=== PATIENT | female | born 1980 | race Caucasian/White ===

== ENCOUNTER → 2017-10-12 11:21 | Outpatient (CLI) | payer MEDICAID, SELFPAY ==
[2017-10-12 15:27] LABS: Estradiol 47.2 pg/mL
[2017-10-12 15:30] LABS: Vitamin D,25 Hydroxy 36.6 ng/mL (29.95-100.01)
[2017-10-13 05:05] LABS: DHEA Sulfate 301.3 ug/dL (57.3-279.2)
[2017-10-15 12:26] LABS: Sex Hormone-binding Globulin 70.6 nmol/L (24.6-122.0)
== END ==
PROVIDERS: Visit Provider Obstetrics & Gynecology
DX: N94.3 Premenstrual tension syndrome (principal)
CPT/HCPCS: 36415; 82306; 82627; 82670; 84270; 84403; 82626

== ENCOUNTER → 2018-01-29 14:17 | Outpatient (CLI) | payer MEDICAID, SELFPAY ==
[2018-02-04 13:29] LABS: HPV APTIMA, High Risk Negative (Negative)
== END ==
PROVIDERS: Visit Provider Obstetrics & Gynecology
DX: Z12.4 Encounter for screening for malignant neoplasm of cervix (principal)
CPT/HCPCS: 87624; 88175; G0145

== ENCOUNTER → 2018-02-08 09:08 | Outpatient (CLI) | payer MEDICAID, SELFPAY ==
--- NOTE | 2018-02-08 09:11 | BI_ITS ---
MAMMOGRAPHY - BILATERAL SCREENING REASON FOR EXAM: Female, 37 years old. Routine annual screening examination. PERTINENT HISTORY: Mother with breast cancer. Grandmother with breast cancer. TECHNIQUE: Digital bilateral breast giovanni (3D mammographic acquisition) in the CC and MLO projections. 2-D mediolateral oblique (MLO) and craniocaudad (CC) views of both breasts were obtained. CAD: Full Field Digital Mammography with Computer Added Detection was performed. COMPARISON: None. Baseline examination. FINDINGS: Breast Composition: There are scattered areas of fibroglandular density. There are no dominant masses or suspicious calcifications. No other significant abnormalities are identified. BI/SCREENING MAMM (CAD), BILAT IMPRESSION: Negative screening mammogram. Yearly followup mammogram recommended. (A) ASSESSMENT CATEGORY: BIRADS Category 1: Negative. A letter regarding these results will be sent to the patient by the facility within 30 days. Approximately 10% of breast cancers are not detected by mammography. A normal mammogram should not delay biopsy of a clinically suspicious abnormality. [id number] Electronically Signed: Ba Diego MD at 9:30 EST Tel [phone], Service support ,
== END ==
PROVIDERS: Family Provider Internal Medicine; PCP Internal Medicine; Visit Provider Obstetrics & Gynecology
DX: Z12.31 Encounter for screening mammogram for malignant neoplasm of breast (principal); Z80.3 Family history of malignant neoplasm of breast
CPT/HCPCS: 77063; 77067

== ENCOUNTER → 2018-04-03 09:03 | Outpatient (CLI) | payer MEDICAID, SELFPAY ==
[2018-04-03 10:10] LABS: Estradiol 39.6 pg/mL; Follicle Stimulating Hormone 6.6 mIU/mL; Glucose 82 mg/dL (74-106)
[2018-04-03 10:20] LABS: Insulin 7.4 mU/L (2.6-37.6)
[2018-04-04 08:13] LABS: DHEA Sulfate 254.8 ug/dL (57.3-279.2)
== END ==
PROVIDERS: Visit Provider Obstetrics & Gynecology
DX: R53.83 Other fatigue (principal); N91.4 Secondary oligomenorrhea; N94.3 Premenstrual tension syndrome
CPT/HCPCS: 36415; 82533; 82627; 82670; 82947; 83001; 83525; 84270; 84403; 82626

== ENCOUNTER → 2019-02-14 15:45 | Outpatient (CLI) | payer MEDICAID, SELFPAY ==
[2019-02-19 12:07] LABS: Age Gdln ACOG Testing 30-65 (.)
[2019-02-19 13:19] LABS: HPV APTIMA, High Risk Negative (Negative)
[2019-02-19 13:23] LABS: HPV Reflexed? YES, CHARGE PATIENT
== END ==
PROVIDERS: Visit Provider Obstetrics & Gynecology
DX: Z12.4 Encounter for screening for malignant neoplasm of cervix (principal)
CPT/HCPCS: 87624; 88175; G0145

== ENCOUNTER → 2019-03-13 17:30 | Outpatient (CLI) | payer MEDICAID, SELFPAY ==
--- NOTE | 2019-03-13 17:30 | BI_ITS ---
MAMMOGRAPHY - BILATERAL SCREENING REASON FOR EXAM: Female, 38 years old. Routine annual screening examination. PERTINENT HISTORY: Mother with breast cancer. Grandmother with breast cancer. Aunt with breast cancer. TECHNIQUE: Digital bilateral breast marco (3D mammographic acquisition) in the CC and MLO projections. 2-D mediolateral oblique (MLO) and craniocaudad (CC) views of both breasts were obtained. CAD: Full Field Digital Mammography with Computer Added Detection was performed. COMPARISON: Comparison is made with prior study dated February 08, 2018. FINDINGS: Breast Composition: There are scattered areas of fibroglandular density. There are no dominant masses or suspicious calcifications. No other significant abnormalities are identified. There has been no significant change since the prior study. BI/SCREEN MAMM (CAD) W/MARCO BILAT IMPRESSION: Stable bilateral screening mammogram. Yearly follow-up mammogram recommended. (A) ASSESSMENT CATEGORY: BIRADS Category 1: Negative. A letter regarding these results will be sent to the patient by the facility within 30 days. Approximately 10% of breast cancers are not detected by mammography. A normal mammogram should not delay biopsy of a clinically suspicious abnormality. [id number] Electronically Signed: Ba Diego, at 9:40 EST , Service support ,
== END ==
PROVIDERS: Family Provider Internal Medicine; PCP Internal Medicine; Referring Provider Obstetrics & Gynecology; Visit Provider Obstetrics & Gynecology
DX: Z12.31 Encounter for screening mammogram for malignant neoplasm of breast (principal); Z80.3 Family history of malignant neoplasm of breast
CPT/HCPCS: 77063; 77067

== ENCOUNTER → 2020-01-12 17:49 | Outpatient (CLI) | payer MEDICAID, SELFPAY | PROVIDERS: PCP Internal Medicine; Referring Provider Clinical Nurse Specialist; Visit Provider Clinical Nurse Specialist | DX: Z20.828 Contact with and (suspected) exposure to other viral communicable diseases (principal) | CPT/HCPCS: 87635; C9803; U0003 ==

== ENCOUNTER → 2020-04-07 16:00 | Outpatient (CLI) | payer MEDICAID, SELFPAY ==
[2020-04-13 09:41] LABS: HPV APTIMA, High Risk Negative (Negative)
== END ==
PROVIDERS: PCP Internal Medicine; Visit Provider Obstetrics & Gynecology
DX: Z12.4 Encounter for screening for malignant neoplasm of cervix (principal)
CPT/HCPCS: 87624; 88175; G0145

== ENCOUNTER → 2020-04-08 17:00 | Outpatient (CLI) | payer MEDICAID, SELFPAY ==
--- NOTE | 2020-04-08 16:55 | BI_ITS ---
MAMMOGRAPHY - BILATERAL SCREENING REASON FOR EXAM: Female, 39 years old. Routine annual screening examination. PERTINENT HISTORY: Mother with breast cancer. Grandmother with breast cancer. Aunt with breast cancer. TECHNIQUE: Digital bilateral breast marco (3D mammographic acquisition) in the CC and MLO projections. 2-D mediolateral oblique (MLO) and craniocaudad (CC) views of both breasts were obtained. CAD: Full Field Digital Mammography with Computer Added Detection was performed. COMPARISON: Comparison is made with prior study dated 03/13/2019 and 02/08/2018. FINDINGS: Breast Composition: There are scattered areas of fibroglandular density. There are no dominant masses or suspicious calcifications. No other significant abnormalities are identified. There has been no significant change since the prior study. BI/SCRN MAMM (CAD)W/MARCO BILAT IMPRESSION: Stable bilateral screening mammogram. Yearly follow-up mammogram recommended. (A) ASSESSMENT CATEGORY: BIRADS Category 1: Negative. A letter regarding these results will be sent to the patient by the facility within 30 days. Approximately 10% of breast cancers are not detected by mammography. A normal mammogram should not delay biopsy of a clinically suspicious abnormality. [id number] Electronically Signed: Ba Diego, at 8:31 EST , Service support ,
== END ==
PROVIDERS: PCP Internal Medicine; Referring Provider Obstetrics & Gynecology; Visit Provider Obstetrics & Gynecology
DX: Z12.31 Encounter for screening mammogram for malignant neoplasm of breast (principal); Z80.3 Family history of malignant neoplasm of breast
CPT/HCPCS: 77063; 77067

== ENCOUNTER → 2020-08-10 11:19 | Outpatient (CLI) | payer MEDICAID, SELFPAY ==
--- NOTE | 2020-08-10 | EMB_PTH ---
PATIENT: YONY GRACE LOC: [facility] U#:[id number] AGE/SX: 44/F ROOM: RE08/10/[address]: Dr. Lena Nassar MD : 1980 BED: DIS: SPEC #: [id number] RECD: 08/10/20 13:32 STATUS: ANA JIM #: [id number] RU: 08/10/20 00:[address]: Lena Black DEPT: SURGICAL PATHOLOGY RECD BY: Carol Ann Gonzalez ENTERED: 08/11/20 09:49 SP TYPE: ENDOM BX/C CARLEEN DR: Dr. Vanesa Jung MD Tissues: Endometrium, NOS Procedures: Surgery Specimen Level IV HEADER OPERATION: Endometrial biopsy PRE-OP DIAGNOSIS: Abnormal uterine bleeding N93.9 TISSUE SUBMITTED: Endometrial biopsy MICROSCOPIC DIAGNOSIS Endometrial biopsy: Dyssynchronous endometrium consisting of weakly proliferative and early secretory endometrium with glandular and stromal breakdown. Fragments of benign endocervical mucosa. NICOLE:oma 08/12/2020 MICROSCOPIC DESCRIPTION Slides are reviewed. GROSS DESCRIPTION Received in fixative is one container labeled with the patient's name and designated EM biopsy. The specimen consists of multiple fragments of hemorrhagic soft tissue that in aggregate measure 2.5 x 2 x 0.2 cm. The specimen is totally submitted in one cassette. / NICOLE:oma 08/11/20 TC:5 CPT: 16142
[2020-08-10 13:37] LABS: Hematocrit 43.1 % (37-47); Mean Corp Hgb Conc 32.5 g/dL (32-36); Mean Corpuscular Hgb 27.3 pg (27.0-32.0); Mean Corpuscular Volume 84.2 fL (81-99); Mean Platelet Vol. 9.7 fl (6.2-12.0); Platelet Count 468 K/mm3 (150-450); RBC Distribution Width CV 12.5 % (11.6-14.6); RBC Distribution Width SD 37.9 fl (35.1-43.9); Red Blood Count 5.12 M/mm3 (4.2-5.4); White Blood Count 7.6 K/mm3 (4.4-11.0)
[2020-08-10 16:46] LABS: Estradiol 79.6 pg/mL; Ferritin 20 ng/mL (8-252); Follicle Stimulating Hormone 4.7 mIU/mL; Iron 55 ug/dL (50-170); Iron Binding Capacity,Total 402 ug/dL (250-450); T4 Free Direct 1.18 ng/dL (0.76-1.46)
== END ==
PROVIDERS: PCP Internal Medicine; Visit Provider Obstetrics & Gynecology
DX: N93.9 Abnormal uterine and vaginal bleeding, unspecified (principal); E28.0 Estrogen excess; R23.2 Flushing; E03.9 Hypothyroidism, unspecified
CPT/HCPCS: 36415; 82670; 82728; 83001; 83540; 83550; 84439; 84443; 85027; 88305

== ENCOUNTER → 2020-08-18 12:22 | Outpatient (CLI) | payer MEDICAID, SELFPAY ==
[2020-08-22 03:06] LABS: Testosterone, % Free 2.83 % (0.50-2.80); Testosterone, Free 0.57 ng/dL (0.10-0.85)
[2020-08-22 13:33] LABS: Sex Hormone-binding Globulin 49.2 nmol/L (24.6-122.0); Testosterone, Total 20 ng/dL (4-50)
== END ==
PROVIDERS: PCP Internal Medicine; Referring Provider Obstetrics & Gynecology; Visit Provider Obstetrics & Gynecology
DX: E28.2 Polycystic ovarian syndrome (principal); E28.0 Estrogen excess
CPT/HCPCS: 36415; 84270; 84402; 84403

== ENCOUNTER 2020-10-28 19:22 | Observation (INO) | payer MEDICAID, SELFPAY ==
[2020-10-22 17:40] LABS: Hematocrit 43.3 % (37-47); Hemoglobin 13.9 g/dL (12.0-15.0); Mean Corp Hgb Conc 32.1 g/dL (32-36); Mean Corpuscular Hgb 27.1 pg (27.0-32.0); Mean Corpuscular Volume 84.4 fL (81-99); Mean Platelet Vol. 10.3 fl (6.2-12.0); Platelet Count 436 K/mm3 (150-450); RBC Distribution Width CV 12.5 % (11.6-14.6); RBC Distribution Width SD 38.5 fl (35.1-43.9); Red Blood Count 5.13 M/mm3 (4.2-5.4); White Blood Count 7.9 K/mm3 (4.4-11.0)
[2020-10-22 17:54] LABS: International Normalized Ratio 1.1; Prothrombin Time (Protime)PT. 13.2 SECONDS (11.7-14.9)
[2020-10-22 17:55] LABS: Partial Thromboplast Time 27.5 Seconds (24.1-36.2)
[2020-10-25 10:55] LABS: Magnesium 2.2 mg/dL (1.6-2.6)
[2020-10-28] VITALS (18 sets, daily range): BP systolic 127–158; BP diastolic 79–108; PULSE 72–100; RESP 16–18; TEMP 36.1–36.5; O2SAT 97–100; BMI 31.2; BMI 32.4
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
[2020-10-28 05:55] LABS: Internal QC Validated? YES +Cl - CLEAR BKGD; Pregnancy, Urine Negative Negative
[2020-10-28] MEDS: Lactated Ringers 1,000 ML 40 ML IV (06:00)
[2020-10-28] MEDS: dexAMETHasone 10 MG/ML Vial 8 MG IV (06:05)
[2020-10-28] MEDS: Gabapentin 600 MG Tablet PO (06:37)
[2020-10-28] MEDS: Acetaminophen 500 MG Tablet 1000 MG PO ×2 (06:38→20:42)
[2020-10-28 07:26] LABS: Bedside Glucose 101 mg/dL (70-110)
--- NOTE | 2020-10-28 07:30 | HYST_PTH ---
PATIENT: YONY GRACE LOC: [facility] U#:[id number] AGE/SX: 40/F ROOM: [facility] RE10/28/[address]: Dr. Lena Nassar MD : 1980 BED: 1 DIS: 10/29/2020 SPEC #: [id number] RECD: 10/28/20 12:03 STATUS: ANA FERNANDEZ #: [id number] RU: 10/28/20 07:[address]: Lena Black DEPT: SURGICAL PATHOLOGY RECD BY: Carol Ann Gonzalez ENTERED: 10/28/20 12:29 SP TYPE: HYSTERECT OTHR DR: Dr. Vanesa Jung MD Tissues: Uterus, NOS Procedures: Surgery Specimen Level V HEADER OPERATION: ERAS, vaginal hysterectomy, cystoscopy PRE-OP DIAGNOSIS: Excessive and frequent menstruation with irregular cycle TISSUE SUBMITTED: Cervix and uterus MICROSCOPIC DIAGNOSIS Cervix and uterus, vaginal hysterectomy: Cervix ? chronic inflammation. Endometrium ? secretory endometrium. Myometrium ? focal adenomyosis. See comment. SJ:rg 11/01/2020 COMMENT Subserosal nodular mass is consistent with adenomyosis. Detached piece of tissue consists of benign ectocervical mucosa. MICROSCOPIC DESCRIPTION Slides are reviewed. GROSS DESCRIPTION Received in fixative is one container labeled with the patient's name and designated cervix, uterus. The specimen consists of a hysterectomy specimen consisting of uterus with cervix and detached piece of soft tissue. The uterus with cervix and detached piece of tissue weighs 108 gm. The uterus measures 10 x 6 x 4 cm. The serosal surface is newell, glistening. A subserosal nodule is noted. The detached piece of tissue measures 3.8 x 1 x 0.2 cm. The ectocervical mucosa is unremarkable. The external os is oval and patulous in contour. The endocervical canal measures 4 cm in length and the endocervical mucosa is unremarkable. The triangular endometrial cavity measures 5 cm in length and up to 3.5 cm in width. The endometrium is newell, glistening without any mass lesion and measures up to 0.2 cm in thickness. Sections of the uterine wall reveal a small subserosal nodular mass measuring 0.3 cm in greatest dimension. The uterine wall measures up to 2.5 cm in thickness. House Steward/Stewardess sections are submitted in seven cassettes as follows: 1 - anterior cervix, 2 - posterior cervix, 3 & 4 - anterior uterine wall, 5 & 6 - posterior uterine wall, 7 - subserosal nodular mass, entirely submitted. / NICOLE:oma 10/28/20 More sections are submitted as follows: 8 ? detached piece of tissue. / NICOLE:oma 10/29/20 TC:5 CPT: 11751
[2020-10-28] MEDS: Lubricating Jelly 60 GM Tube 30 GM TOPICAL (08:04)
[2020-10-28] MEDS: Vasopressin 20 UNITS/ML Vial (08:10)
[2020-10-28] MEDS: Cefazolin 2 GM in 0.9% Normal Saline 100 ML IV ×2 (11:24→20:48)
--- NOTE | 2020-10-28 13:32 | PCM.OPRPT ---
Problems Associated Problem List Diagnoses (1) Hematuria: (2) Intraoperative bladder injury: Report of Operation Date of Procedure: 10/28/20 Pre-Operative Diagnosis: hematuria Post-Operative Diagnosis: hematuria, intraoperative bladder injury Surgery/Procedure Performed:: cystoscopy, insertion bilateral ureteral catheters, attempted vaginal closure of cystotomy Surgeon: Shital Rod Type of Anesthesia: General Drains: open ended ureteral catheters bilaterally Description of Procedure: The patient is a 40-year-old female undergoing a hysterectomy with a vaginal approach. Following closure of the cuff and cystoscopy, there is a question of blood in the urinary bladder. I was asked to come in for evaluation. I remove the Belcher catheter and inserted the cystoscope under direct visualization through the urethra. The urethra was normal. Bilateral ureteral orifices were located in the area of the trigone. Beyond the trigone, in the midline, approximately 2 cm in lateral orientation, a rent of the bladder mucosa was apparent. Bilateral open ended ureteral catheters were gently inserted to approximately 22 cm without difficulty, or evidence of obstruction. At this time the cuff closure was taken down by Dr. Don Nassar. She left the left uterosacral stitch intact. Dissection of the detrusor and identification of the opening of the bladder wall was then attempted. Injury to the detrusor muscle was identified. A 2 layer imbricated closure was performed of this area with 2-0 Vicryl on a UR 6. At this time a cystoscopy was performed once again through the urethra under direct visualization. The tear in the bladder mucosa remained. At this time the decision was made to replace the Belcher catheter, continue the ureteral open ended catheters, now putting out blood-tinged urine. Dr. Don Nassar then made the decision to evaluate the patient laparoscopically. I recommended to Dr. Don Nassar that another urologist be consulted for possibility of laparoscopic or open repair. Admit VTE Documentation VTE Present on Admission: Yes VTE Mechan Device Prophylaxis: SCD's
[2020-10-28] MEDS: Bupivacaine Mpf 0.5% 30 ML VIAL (13:40)
--- NOTE | 2020-10-28 17:18 | PCM.OPRPT ---
Report of Operation Date of Procedure: 10/28/20 Pre-Operative Diagnosis: Bladder injury Post-Operative Diagnosis: The same Surgery/Procedure Performed:: Repair of bladder injury Cystotomy, laparoscopally Description of Surgical Findings:: I was called in to see the patient regarding a in injury to the bladder posterior to the trigone that was identified during the hysterectomy. A cystoscopy had been performed and bilateral stents been placed. The patient had laparoscopic ports in place I did place in extra 8 mm poor in the patient's right side. We identified the large bladder injury there was a Chapman catheter through the hole in the bladder. Then use a laparoscopic approach I ran a suture to close the bladder injury in a running fashion with Vicryl. After one layer closure we filled the bladder up in there was minimal leakage from the injury site. At this point I scrubbed out left the operating room. Then sometime later I was called back in sense there was report that there was the leakage of urine from the bladder and that they could see it tip of the catheter. I came back into the operating room and at this point the primary surgeon and placed a few stitches in the bladder three approximate the edges and then I decided to run a second layer with 3 -0 V loc stitch to close a second layer over the bladder and then this time we filled the bladder up with about 60 mL of water in there was no leakage. I then scrubbed out with the catheter the bladder the patient will have to have the catheter in for two weeks and will see me in the office for follow-up, Off all the patient postoperatively form her surgery as well. So we did a complicated repair of a bladder injury into layer fashion. At the end I was happy with the repair and appeared to be a complete closure with no leakage. Surgeon: francisco Type of Anesthesia: General Drains: 20 fr chapman Admit VTE Documentation VTE Present on Admission: No VTE Mechan Device Prophylaxis: SCD's
[2020-10-28] MEDS: Ondansetron ODT 4 MG Tablet PO (20:20)
[2020-10-28] MEDS: Docusate Sodium 100 MG Capsule PO (20:44)
[2020-10-28] MEDS: Heparin Injection (Vial) 5,000 UNIT/ML VIAL 5000 UNIT SC (21:02)
[2020-10-29 00:02] VITALS: BP 141/97; PULSE 82; RESP 18; TEMP 36.8; O2SAT 100
[2020-10-29] MEDS: Acetaminophen 500 MG Tablet 1000 MG PO ×3 (00:37→12:11)
[2020-10-29] MEDS: Cefazolin 2 GM in 0.9% Normal Saline 100 ML IV ×2 (04:08→12:10)
[2020-10-29 04:10] VITALS: BP 132/78; PULSE 63; RESP 16; TEMP 36.8; O2SAT 100
[2020-10-29 05:00] LABS: Hemoglobin 11.9 g/dL (12.0-15.0); Mean Corp Hgb Conc 32.2 g/dL (32-36); Mean Corpuscular Hgb 27.5 pg (27.0-32.0); Mean Corpuscular Volume 85.5 fL (81-99); Mean Platelet Vol. 10.2 fl (6.2-12.0); Platelet Count 375 K/mm3 (150-450); RBC Distribution Width CV 12.7 % (11.6-14.6); RBC Distribution Width SD 39.3 fl (35.1-43.9); Red Blood Count 4.33 M/mm3 (4.2-5.4); White Blood Count 20.2 K/mm3 (4.4-11.0)
[2020-10-29 05:26] LABS: Anion Gap 8 (5-15); BUN 9 mg/dL (7-18); BUN/Creat Ratio 9.3 RATIO (10-20); Calcium,Total 8.1 mg/dL (8.5-10.1); Chloride 104 mmol/L (98-107); Creatinine, Serum 0.96 mg/dL (0.55-1.02); EST Glomerular Filtration Rate 68 mL/min (>60); Est Glom Filt Rate - Afr Amer 82 mL/min (>60); Estimated Creatinine Clearance 66.59 ml/min; Glucose 159 mg/dL (74-106); Potassium 3.7 mmol/L (3.5-5.1); Sodium Level 139 mmol/L (136-145)
--- NOTE | 2020-10-29 06:36 | PCM.PN.BLA ---
Progress Note Status post complicated repair of bladder injury, in the end she had a good 2 layer closure of the bladder. Today the urine is clear and draining well. I think the ureteral catheters can be removed prior to discharge and she can go home with a Belcher catheter follow-up in my office in 2 weeks for Belcher catheter removal.
[2020-10-29 09:35] VITALS: BP 121/80; PULSE 86; RESP 16; TEMP 36.8; O2SAT 100
[2020-10-29] MEDS: Heparin Injection (Vial) 5,000 UNIT/ML VIAL 5000 UNIT SC (09:46)
[2020-10-29] MEDS: amLODIPine 5 MG Tablet PO (09:46)
[2020-10-29] MEDS: Docusate Sodium 100 MG Capsule PO (09:46)
[2020-10-29] MEDS: 0.9% Saline Lock 10 ML Syringe IV (12:12)
--- NOTE | 2020-10-29 12:32 | OP.PCM_ITS ---
Problems Associated Problem List Diagnoses (1) Menometrorrhagia: (2) Intraoperative bladder injury: (3) Hx of total vaginal hysterectomy: Report of Operation Date of Procedure: 10/28/20 Pre-Operative Diagnosis: 1. Heavy and frequent menstrual bleeding Post-Operative Diagnosis: 1. Heavy and frequent menstrual bleeding 2. Bladder injury Surgery/Procedure Performed:: 1. Total vaginal hysterectomy 2. Cystoscopy 3. Diagnostic laparoscopy 4. Cystoscopy repair Description of Surgical Findings:: normal appearing uterus, cervix and ovaries Surgeon: Lena Black Type of Anesthesia: General Anesthesiologist: Homer Dao Specimen's removed: uterus, cervix Estimated Blood Loss (mL): 200 Fluids Replaced: 4200 ml Description of Procedure: Indications: 40 yo para 3 with history of frequent and irregular menstruation refractory to medical management presents for scheduled TVH. She was counseled regarding procedural risks, benefits, indications and alternatives and desired to proceed. Informed consent was obtained prior to the procedure. Procedure: Patient was brought to the operating room and sign in performed. She was induced under general anesthesia and intubated. She was repositioned into dorsal lithotomy. The perineum was prepped and draped in sterile fashion. The patient was placed into high lithotomy and chapman catheter placed. A weighted speculum was placed vaginally and the cervix grasped with a Tae's tenaculum. The cervix was injected with 20cc of dilute vasopressin (20 U in 100cc NS). A circumferential incision was made using the scalpel and the cervicovaginal junction. The bladder was retracted and vesicouterine membranes was dissected sharply and bluntly anteriorly. The anterior culdesac peritoneum was palpable, however, not visible, thus I proceeded with posterior dissection. The posterior culdesac was entered sharply using the Caceres scissors. A long weighted speculum was placed into the posterior culdesac. The uterosacral ligaments were serially Estevan clamped, cut and transfixed with 0 Vicryl bilaterally. The cardinal ligament and uterine vessels were clamped, electrocoagulated and cut using the Ligasure Impact with significant descensus. The anterior culdesac was then sharply entered and the curved Bhumika placed here. The utero-ovarian ligements were subsequently clamped, electrocoagulated and cut with the Ligasure delivering the uterus and cervix. The pelvic peritoneum was purse-stringed with 0 vicryl. The patient had an enterocele with abundant vaginal tissue posterior. I created a V-incision along the posterior vaginal wall and dissected the underlying fascia and reapproximated the vaginal mucosa and the vaginal cuff with serial figure of eight 0 Vicryl sutures. Cystoscopy was performed with bilateral ureteral efflux noted however cystotomy was present proximal to the trigone. I called for Urologist to evaluate the cystotomy for repair. Dr. Rod performed a cystoscopy with bilateral utereral stent placement and exploratory surgery transvaginally. I took down the vaginal cuff and culdoplasty sutures to allow access to the pelvis. Following Dr. Rod's portion of the case, repeat cystoscopy was performed demonstrating persistence of the cystotomy. The chapman catheter was replaced into the bladder. I placed a sterile ballooned glove in the vagina to maintain pneumoperitoneum for diagnostic laparoscopy to further assess the location of the cystotomy. The patient was placed into low lithotomy and attention turned to the abdomen for diagnostic laparoscopy. An inferior umbilical incision was made and Veress needle introduced with successful hang drop test and no aspirate. The abdomen was insufflated to 15mmHg. The Veress needle was removed and a 5mm Port was introduced abdominal under laparoscopic guidance. Diagnostic laparoscopy was performed demonstrating the cystotomy. I called in Dr. Nowak for assistance with repair. Right and left lower quadrant incisions and 5mm ports were placed under transillumination after injecting 0.5% marcaine. A fourth right lower quadrant 8mm port was placed to introduced the laparoscopic needle into the abdomen. Dr. Nowak reapproximated the cystotomy in single layer 3-0 Vicryl laparoscopically. The bladder was back filled with little drainage observed on laparoscopy. The scope was removed and the chapman catheter replaced. He scrubbed out of the procedure and I again scoped the patient intra-abdominally however I could see the chapman catheter tip at the right pelvis. I called Dr. Nowak again for assistance with repair. I reapproximated this portion of the cystostomy using 3-[address] Nowak arrived and imbricated the cystotomy repair further with V-lock. The chapman catheter was removed, cystoscopy performed with closure of the cystotomy noted. The bladder was back filled with no appreciable leakage on laparoscopy and the chapman catheter returned to the bladder. The abdomen was desufflated and the ports removed. The skin was closed by the [employer] under my supervision with 4-0 Monocryl. I return to the vagina, placed the patient into high lithotomy and reapproximated the vaginal cuff again using 0 Vicryl figure of eight sutures. The urine drained bloody at this time and the ureteral catheters were secured to the chapman catheters. The patient was placed into the dorsal supine position, awakened, extubated and transferred to the recovery room without further complication.
--- NOTE | 2020-10-29 12:44 | PCM.DC ---
Discharge Instructions Diet Discharge Diet: No restrictions Activity Discharge Activity: Return to Normal Activity May resume sexual activity in: 6 weeks Lifting Restrictions: 10 lb Dressing / Incision Call your doctor if your incision/area has: Continuous Slow Oozing, Sudden Increased Bleeding, Increased Pain/ Swelling, Increased Redness, Foul Smelling Discharge and Swelling at the incision site Call your doctor if you observe: Inability to have a bowel movement, Shortness of breath, Chest pain, Calf discomfort, Uncontrolled pain and - (Temperature of 100.4 or more) Cleanse incision/area with: Soap & Water Follow Up Care Please Follow Up With: Lena Black MD When: November 03 at 3:30 pm. Test Results: Test results from this visit will be discussed in further detail at your follow-up appointment, if applicable. Discharge Plan Admission Admit Date/Time: 10/28/20 19:22 Primary Reason for Your Visit: Hysterectomy, Bladder injury repair Attending Provider: Lena Black Primary Care Provider: Vanesa Jung Instructions Patient Instructions: Hysterectomy Vaginal Dc, Emptying and Cleaning Your ... Discharge Orders/Prescriptions Prescriptions: New tramadol 50 mg tablet 50 mg PO Q6H PRN (Reason: pain) Qty: 12 RF: 0 cephalexin 500 mg capsule 500 mg PO BID Qty: 28 RF: 0 Continued methylphenidate HCl [Ritalin] 20 MG tablet 30 mg PO DAILY RF: 0 metformin 500 MG tablet 1,000 mg PO DAILY RF: 0 cholecalciferol (vitamin D3) [Vitamin D3] 2,000 UNIT capsule 2,000 unit PO DAILY RF: 0 Ibuprofen [Motrin] 800 MG tablet 800 mg PO TID PRN PRN (Reason: Pain) Qty: 30 RF: 0 amlodipine 5 mg tablet 5 mg PO DAILY RF: 0 vitamin B complex Capsule 1 cap PO DAILY RF: 0 magnesium 200 mg Tablet 400 mg PO DAILY RF: 0 Referrals / Follow Up: Ayo Nowak MD [STAFF PHYSICIAN] - Within 2 Weeks (Call office to schedule an appointment in 2 weeks.) Disposition Disposition (needs filled in before D/C Order can be placed): Home, Self Care
[2020-10-29 13:46] VITALS: O2SAT 99
[2020-10-29 13:50] VITALS: BP 127/82; PULSE 82; RESP 16; TEMP 36.9; O2SAT 100
== END 2020-10-29 14:31 | disposition home or self-care (01) ==
LOC: SDC 10-29 03:48 → MS3 10-29 03:48
PROVIDERS: Anesthesiology; Admitting Provider Obstetrics & Gynecology; PCP Internal Medicine; Referring Provider Obstetrics & Gynecology; Visit Provider Obstetrics & Gynecology
PROC: (CPT 58260; principal; 2020-10-28 07:10)
DX: N80.0 Endometriosis of uterus (principal); N99.71 Accidental puncture and laceration of a genitourinary system organ or structure during a genitourinary system procedure; N92.1 Excessive and frequent menstruation with irregular cycle; Z87.891 Personal history of nicotine dependence; D25.0 Submucous leiomyoma of uterus; N81.5 Vaginal enterocele
CPT/HCPCS: 00940; 49320; 51865; 52005; 57240; 58260; 36415; 80048; 81025; 82962; 83735; 85027; 85610; 85730; 86850; 86900; 86901; 88307; 96365; 96366; 96372; 99218; 99251; J7050; J7120; A4216; G0378; G0463; J2405

== ENCOUNTER → 2020-11-03 17:03 | Outpatient (CLI) | payer MEDICAID, SELFPAY ==
[2020-10-28 20:09] VITALS: BMI 32.4
[2020-11-03 17:06] LABS: Mucous, Urine 0 SEEN /hpf (<or=2+); Squamous Epithelial Cells - UA 0 SEEN /hpf (5-10)
[2020-11-03 17:24] LABS: Color, Urine Yellow (Yellow); Glucose, Dipstick Normal (Normal); Ketone-Dipstick Negative (Negative); Leukocyte Esterase-Dipstick 100 /ul (Negative); Nitrite-Dipstick Positive (Negative); Occult Blood-Urine 250 /ul (Negative); Protein-Dipstick 100 mg/dl (Negative); Urine Bilirubin Dipstick Negative (Negative); Urine Clarity Clear (Clear); Urine Urobilinogen Normal (Normal)
[2020-11-03 17:40] LABS: Red Blood Cells-Urine 5-10 SEEN /hpf (0-5); White Blood Cells 10-25 SEEN /hpf (0-5)
[2020-11-03 17:41] LABS: Bacteria 2+ /hpf (None Seen)
== END ==
PROVIDERS: PCP Internal Medicine; Visit Provider Obstetrics & Gynecology
DX: R31.9 Hematuria, unspecified (principal)
CPT/HCPCS: 81001; 87077; 87086; 87088; 87186

== ENCOUNTER → 2020-11-11 10:16 | Outpatient (CLI) | payer MEDICAID, SELFPAY ==
[2020-10-28 20:09] VITALS: BMI 32.4
--- NOTE | 2020-11-11 10:19 | RAD_ITS ---
CLINICAL HISTORY: Female, 40 years old. Follow-up of injury to the bladder. PROCEDURE: Cystogram. FLUOROSCOPY TIME (if supplied): (30 seconds) minutes/seconds. 2 images were obtained. 200 mL of contrast installed into the bladder in a retrograde fashion through indwelling catheter.. installed the contrast into the bladder. TECHNIQUE: (All elements of maximal sterile barrier technique followed, including US elements as applicable) The urinary bladder was opacified. No bladder leak is seen. RAD/Cystography min 3 Views IMPRESSION: Unremarkable cystogram. Electronically Signed: Ba Diego MD at 11:04 EDT , Service support ,
== END ==
PROVIDERS: PCP Internal Medicine; Referring Provider Urology; Visit Provider Urology
DX: S37.20XA Unspecified injury of bladder, initial encounter (principal)
CPT/HCPCS: 51600; 74430; Q9965

== ENCOUNTER 2020-11-14 12:28 | Emergency (ER) | payer MEDICAID, SELFPAY ==
[2020-11-14 12:29] VITALS: BP 157/109; PULSE 125; RESP 16; TEMP 35.9; O2SAT 100; BMI 31.1
[2020-11-14 13:23] LABS: Mucous, Urine 0 SEEN /hpf (<or=2+); Squamous Epithelial Cells - UA 0 SEEN /hpf (5-10)
[2020-11-14 13:25] LABS: Color, Urine Straw (Yellow); Glucose, Dipstick Normal (Normal); Ketone-Dipstick Negative (Negative); Leukocyte Esterase-Dipstick 500 /ul (Negative); Nitrite-Dipstick Negative (Negative); Occult Blood-Urine 150 /ul (Negative); Protein-Dipstick Negative (Negative); Specific Gravity, Urine 1.005 (1.002-1.030); Urine Bilirubin Dipstick Negative (Negative); Urine Clarity Clear (Clear); Urine Urobilinogen Normal (Normal)
[2020-11-14 13:39] LABS: Bacteria 1+ /hpf (None Seen); Red Blood Cells-Urine 5-10 SEEN /hpf (0-5); White Blood Cells 50-100 SEEN /hpf (0-5)
--- NOTE | 2020-11-14 14:21 | ED.VIS.FEGU ---
HPI HPI - Female History of Present Illness Chief Complaint: Complaint Detail of Chief Complaint: Dysuria that started this morning Informant: patient Narrative Narrative: Patient presents to the emergency department with complaint of dysuria. Patient states that she had a Belcher catheter in place until couple of days ago. Patient states that she had been on Keflex for a week and then was switched over to Macrobid for suspected UTI. Patient denies any fevers. She denies nausea or vomiting. She described some lower abdominal pressure. Patient states that she had a hysterectomy on October 28 with bladder injury and then required bladder repair. Patient states that she has multiple antibiotic allergies and cannot take Pyridium either. Prior similar symptoms: Yes PFSH [facility] Medical History (Updated 11/14/20 @ 14:[address] Mara Carpenter, ) ADHD Allergy to metal Anxiety Arthritis Bladder infection Dietary restriction Former smoker Gastric reflux Hematuria Hypertension Injury of back Intraoperative bladder injury Migraine headache Restless legs Shortness of breath on exertion Wears glasses Home Medications cholecalciferol (vitamin D3) [Vitamin D3] 2,000 unit PO DAILY 07/27/16 [History Last Taken 10/25/20 08:00] metformin 1,000 mg PO DAILY 07/27/16 [History Last Taken 10/27/20 08:00] methylphenidate HCl [Ritalin] 30 mg PO DAILY 07/27/16 [History Last Taken 10/27/20 08:00] Ibuprofen [Motrin] 800 mg PO TID PRN PRN #30 tab 08/03/16 [Rx Last Taken 10/25/20 08:00] amlodipine 5 mg PO DAILY 10/21/20 [History Last Taken 10/28/20 04:30] magnesium 400 mg PO DAILY 10/21/20 [History Last Taken 10/25/20 08:00] vitamin B complex 1 cap PO DAILY 10/21/20 [History Last Taken 10/25/20 08:00] cephalexin 500 mg PO BID #28 cap 10/29/20 [Rx Last Taken Unknown] tramadol 50 mg PO Q6H PRN #12 tab 10/29/20 [Rx Last Taken Unknown] ciprofloxacin HCl [Cipro] 500 mg PO BID #14 tab 11/14/20 [Rx Last Taken Unknown] Allergy/AdvReac Type Severity Reaction Status Date / Time bupropion [From Wellbutrin] Allergy Other Verified 11/14/20 12:30 erythromycin base Allergy Rash Verified 11/14/20 12:30 fluoxetine [From Prozac] Allergy Upset Verified 11/14/20 12:30 Stomach Penicillins [PCN] Allergy Rash Verified 11/14/20 12:30 Sulfa (Sulfonamide Allergy Rash Verified 11/14/20 12:30 Antibiotics) tolterodine [From Detrol] Allergy Shortness Verified 11/14/20 12:30 of breath acetaminophen [From Percocet] AdvReac Nausea Verified 11/14/20 12:30 citalopram AdvReac Other Verified 11/14/20 12:30 clonidine AdvReac Other Verified 11/14/20 12:30 codeine AdvReac Other Verified 11/14/20 12:30 lisinopril AdvReac Other Verified 11/14/20 12:30 mirtazapine AdvReac Other Verified 11/14/20 12:30 oxycodone [From Percocet] AdvReac Nausea Verified 11/14/20 12:30 paroxetine AdvReac Upset Verified 11/14/20 12:30 Stomach psyllium AdvReac Upset Verified 11/14/20 12:30 Stomach sertraline AdvReac Other Verified 11/14/20 12:30 venlafaxine [From Effexor] AdvReac Upset Verified 11/14/20 12:30 Stomach Surgical History (Updated 10/29/20 @ 12:[address] Lena Nassar MD) History of appendectomy History of salpingectomy History of selective injection of anesthetic agent around lumbar nerve root History of tubal ligation Social History Smoking Status: Former smoker ROS ROS ED Constitutional Constitutional ED: Reports systems reviewed and no addt'l complaints, except as documented; Denies body ache(s), change in weight or chills Eyes Eyes: Denies acute decrease in peripheral vision, change in vision, double vision or loss of vision ENT ENT ED: Reports none; Denies ear pain, lip swelling, loss taste/smell, neck pain, otalgia or sore throat Cardiovascular Cardiovascular: Reports none; Denies abdominal pain, chest pain with activity, leg edema, lightheadedness, palpitations, rapid heart rate or syncope Respiratory/Chest Respiratory/Chest: Reports none; Denies change in mental status, dry cough, dyspnea, hemoptysis, shortness of breath at rest or shortness of breath with exertion Gastrointestinal Gastrointestinal: Reports none; Denies abdominal pain, change in stool character, diarrhea, hematemesis, hematochezia, melena, rectal bleeding or vomiting Genitourinary Genitourinary ED: Reports none, dysuria and urinary frequency; Denies abdominal discomfort, anuria, genital pain or polyuria Musculoskeletal Musculoskeletal: Reports none; Denies arthralgias, back pain, difficulty walking, extremity pain, muscle weakness or myalgias Integumentary Reports none; Denies abscess or rash Neurologic Neurologic: Reports none; Denies abnormal gait, confusion, focal weakness, frequent falls, headache(s), loss of vision, numbness, paresthesias, radicular pain, vertigo or weakness Psychiatric Psychiatric: Reports systems reviewed and no addt'l complaints, except as documented and none; Denies behavioral changes, confusion, difficulty concentrating, hallucinations, suicidal ideation, tactile hallucinations or visual hallucinations Endocrine Endocrinology: Denies none, cold intolerance, excessive sweating, fatigue or heat intolerance Hematologic/Lymphatic Hematologic/Lymphatic: Reports none; Denies anemia, easy bleeding or easy bruising Allergic/Immunologic Allergic/Immunologic ED: Denies as per HPI, none, lip swelling, mouth swelling, throat swelling, tongue swelling or hives EXAM Physical Exam Const Vital Signs: 11/14/20 12:29 Temperature 96.6 F L Temperature Source Temporal Pulse Rate 125 H Respiratory Rate 16 Blood Pressure 157/109 H Blood Pressure Mean 125 Pulse Ox 100 Oxygen Delivery Method Room Air Positive well nourished and well developed General Appearance ED: well developed and NAD HEENT Reports TM's clear and moist mucous membranes normocephalic and atraumatic; Negative for trauma or tenderness Tympanic Membrane ED: Yes TM's clear Eyes PERRL and EOMs intact bilaterally General Eye ED: Negative for pale conjunctiva or scleral icterus Neck no lymphadenopathy, supple and no JVD General: Negative for tenderness Chest Wall inspection of chest normal and palpation of chest normal Chest: Negative for tenderness Resp normal respiratory effort and clear to auscultation bilaterally Effort and Inspection: Negative for respiratory distress or pain with movement Auscultation: Negative for rhonchi, wheezes or diminished lung sounds Cardio regular rate, regular rhythm, S1 normal heart sound, S2 normal heart sound and no murmurs Peripheral Pulses: pulses 2+ throughout GI normal to inspection, nondistended, normoactive bowel sounds, soft to palpation, non-distended and no masses GI Narrative: Minimal suprapubic tenderness on palpation. No rebound, rigidity, or peritoneal signs. Port incisions healing well without evidence of infection. Back/Spine no CVA tenderness and no thoracic nor lumbar tenderness Extremity normal to inspection General Extremety ED: Negative for edema General Extremity: Negative for edema Neuro oriented x3, CN's II-XII intact bilaterally, no sensory deficits noted and gait normal Sensorium / Orientation: awake, alert, oriented to person, oriented to place and oriented to time Motor Exam: strength 5/5 throughout and strength abnormal Psych mental status grossly normal Skin no rashes or lesions noted and no wounds MDM MDM MDM Narrative Medical decision making narrative: Patient's urinalysis consistent with UTI. I sent off a culture. We will start her on Cipro being that she was recently on Keflex and Macrobid and has multiple other drug allergies. Lab Data Attestation: I reviewed the patient's lab results. Labs: Laboratory Results - last 24 hr 11/14/20 13:15 Urine Color Straw Urine Clarity Clear Urine pH 7.0 Ur Specific [place] 1.005 Urine Protein Negative Urine Glucose (UA) Normal Urine Ketones Negative Urine Occult Blood 150 H Urine Nitrite Negative Urine Bilirubin Negative Urine Urobilinogen Normal Ur Leukocyte Esterase 500 H Urine RBC 5-10 SEEN Urine WBC 50-100 SEEN Ur Squamous Epith Cells 0 SEEN Urine Bacteria 1+ Urine Mucus 0 SEEN Discharge Plan Triage Chief Complaint: Complaint ED Provider: Mara Carpenter Dx/Rx/DC Orders Clinical Impression: UTI (urinary tract infection) Instructions: ED CYSTITIS Female Adult Prescriptions: New ciprofloxacin HCl [Cipro] 500 mg tablet 500 mg PO BID Qty: 14 RF: 0 No Action methylphenidate HCl [Ritalin] 20 MG tablet 30 mg PO DAILY RF: 0 metformin 500 MG tablet 1,000 mg PO DAILY RF: 0 cholecalciferol (vitamin D3) [Vitamin D3] 2,000 UNIT capsule 2,000 unit PO DAILY RF: 0 Ibuprofen [Motrin] 800 MG tablet 800 mg PO TID PRN PRN (Reason: Pain) Qty: 30 RF: 0 amlodipine 5 mg tablet 5 mg PO DAILY RF: 0 vitamin B complex Capsule 1 cap PO DAILY RF: 0 magnesium 200 mg Tablet 400 mg PO DAILY RF: 0 tramadol 50 mg tablet 50 mg PO Q6H PRN (Reason: pain) Qty: 12 RF: 0 cephalexin 500 mg capsule 500 mg PO BID Qty: 28 RF: 0 Primary Care Provider: Vanesa Jung Referrals: Vanesa Jung MD [Primary Care Provider] - 3-5 Days Disposition Disposition: Home, Self Care
[2020-11-14 14:39] VITALS: BP 143/106; PULSE 99; RESP 18; O2SAT 99
[2020-11-14 14:41] VITALS: BP 140/92
[2020-11-14] MEDS: Ciprofloxacin 500 MG Tablet PO (14:41)
== END 2020-11-14 14:42 | disposition home or self-care (01) ==
LOC: ED 14:31
PROVIDERS: Emergency Provider Emergency Medicine; PCP Internal Medicine
DX: N39.0 Urinary tract infection, site not specified (principal); I10 Essential (primary) hypertension; Z87.891 Personal history of nicotine dependence; F41.9 Anxiety disorder, unspecified; F90.9 Attention-deficit hyperactivity disorder, unspecified type; K21.9 Gastro-esophageal reflux disease without esophagitis; Z79.1 Long term (current) use of non-steroidal anti-inflammatories (NSAID); Z79.84 Long term (current) use of oral hypoglycemic drugs; Z79.899 Other long term (current) drug therapy
CPT/HCPCS: 81001; 87086; 87088; 99283

== ENCOUNTER → 2020-12-10 13:02 | Outpatient (CLI) | payer MEDICAID, SELFPAY ==
--- NOTE | 2020-12-10 13:07 | US_ITS ---
STUDY: RENAL ULTRASOUND - COMPLETE REASON FOR EXAM: Female, 40 years old. S/P BLADDER REPAIR TECHNIQUE: Ultrasound evaluation of the kidneys was performed with real-time and static serrano-scale imaging. COMPARISON: None. FINDINGS: RIGHT KIDNEY: Normal location of the right kidney, which is normal in size. The right kidney measures 10.7 x 5.2 x 4.3 cm. There is a normal cortex of the right kidney. The renal cortex measures 1.3 cm. There is no right renal mass or cyst. There are no right renal calculi. There is no right hydronephrosis. DISTAL RIGHT URETER: There is non-visualization of the distal right ureter. There is no demonstrated right ureterovesical junction calculus. There is a visualized right ureteral jet. LEFT KIDNEY: Normal location of the left kidney, which is normal in size. The left kidney measures 10.9 x 5.3 x 5.3 cm. There is a normal cortex of the left kidney. The renal cortex measures 11.4 cm. There is no left renal mass or cyst. There are no left renal calculi. There is no left hydronephrosis. DISTAL LEFT URETER: There is non-visualization of the distal left ureter. There is no demonstrated left ureterovesical junction calculus. There is a visualized left ureteral jet. AORTA: There is obscuration of the abdominal aorta by overlying bowel gas I.V.C.: The IVC is obscured. BLADDER: The distended urinary bladder has a volume of 91 ml. There is a normal wall thickness of the distended urinary bladder. There is no demonstrated mass within the urinary bladder. There are no demonstrated bladder calculi. US/Kidney and Bladder IMPRESSION: Normal ultrasound of the kidneys and urinary bladder. Electronically Signed: Jayy Escalante MD at 15:02 EDT , Service support ,
== END ==
PROVIDERS: PCP Internal Medicine; Referring Provider Urology; Visit Provider Urology
DX: Z48.816 Encounter for surgical aftercare following surgery on the genitourinary system (principal)
CPT/HCPCS: 76770

== ENCOUNTER 2022-02-06 12:34 | Emergency (ER) | payer OTHER, MEDICAID, SELFPAY ==
[2022-02-06 12:34] VITALS: BP 161/93; PULSE 89; RESP 14; TEMP 36.6; O2SAT 100; BMI 32.4
--- NOTE | 2022-02-06 13:01 | EKG12_ITS ---
Test Reason : Blood Pressure : / mmHG Vent. Rate : 082 BPM Atrial Rate : 082 BPM P-R Int : 144 ms QRS Dur : 076 ms QT Int : 370 ms P-R-T Axes : 027 -03 018 degrees QTc Int : 432 ms Normal sinus rhythm Normal ECG Confirmed by JESSIKA AGUIRRE, KIRSTY ([id number]), material expeditor VISHAL MCCONNELL ([id number]) on 02/07/2022 11:39:35 AM Referred By: ESTRELLA Confirmed By:KIRSTY ROSEN MD
--- NOTE | 2022-02-06 13:14 | RAD_ITS ---
STUDY: X-RAY CHEST REASON FOR EXAM: Female, 41 years old. Chest pain TECHNIQUE: Single AP portable view of the chest. COMPARISON: None. FINDINGS: Elevation of the right hemidiaphragm. The lungs are clear. There is no demonstrated pleural abnormality. Normal size heart. Normal mediastinum and naveed. Normal visualized pulmonary arteries. Normal visualized aortic arch and descending thoracic aorta. There are degenerative changes of the visualized thoracic spine. Normal visualized ribs, clavicles, and shoulders. There is no demonstrated abnormality of the visualized soft tissue structures of the upper abdomen. RAD/Chest 1 View (Portable) IMPRESSION: Normal x-ray examination of the chest. Electronically Signed: Ba Diego MD at 13:26 EST ,
[2022-02-06 13:43] LABS: Absolute Lymphocyte Count 2.33 X10^3/uL (0.83-4.51); Absolute Neutrophil Count 6.3 X10^3/uL (2.0-7.7); Basophil# 0.06 X10^3/uL; Basophil% 0.6 % (0-1); Eosinophil# 0.12 X10^3/uL; Eosinophils% 1.3 % (0-5); Hematocrit 43.9 % (37-47); Hemoglobin 14.6 g/dL (12.0-15.0); Lymphocyte # 2.33 X10^3/ul (0.83-4.51); Lymphocyte % 24.8 % (19-41); Mean Corp Hgb Conc 33.3 g/dL (32-36); Mean Corpuscular Volume 84.3 fL (81-99); Mean Platelet Vol. 9.8 fl (6.2-12.0); Monocyte# 0.51 X10^3/uL; Monocyte% 5.4 % (0-10); NRBC Flagged by Analyzer 0 % (0-5); Neutrophil # 6.33 X10^3/uL (2.7-7.7); Neutrophil % 67.5 % (47-70); Platelet Count 439 K/mm3 (150-450); RBC Distribution Width CV 12.3 % (11.6-14.6); RBC Distribution Width SD 37.3 fl (35.1-43.9); Red Blood Count 5.21 M/mm3 (4.2-5.4); White Blood Count 9.4 K/mm3 (4.4-11.0)
--- NOTE | 2022-02-06 13:51 | ED.VIS.CHEST ---
HPI History of Present Illness Chief Complaint: Chest Pain Informant: patient Onset/Context/Timing Onset: Hours (2) Activity at onset: gradual, onset and rest Timing: Continuous Quality: Positive for Pressure and Sharp Location: Left Parasternal Current Severity: Moderate Maximum Severity: Moderate Worsened By: Nothing; Not Worsened By Breathing or Coughing Relieved By: Nothing Associated Symptoms: Positive for Lightheadedness (Transiently, no near-syncope/syncope) and Palpitations (Wheeler like racing); Negative for Nausea, Vomiting, Diaphoresis, Dyspnea, Cough or Fever Narrative Narrative: Nonpleuritic left-sided chest discomfort along with a feeling of a racing heartbeat, palpitations are gone but the discomfort persists, started 2 hours ago. Had another episode about a week ago that she did not come to the ED for because it was more transient. No recent unilateral leg pain/swelling, no history of DVT or PE, no recent long travel, hospitalization, or surgery. The discomfort is nonpleuritic. 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 [facility] Medical History ADHD Allergy to metal Anxiety Arthritis Bladder infection Dietary restriction Former smoker Gastric reflux Hematuria Hypertension Injury of back Intraoperative bladder injury Migraine headache Restless legs Shortness of breath on exertion Wears glasses Home Medications cholecalciferol (vitamin D3) 50 mcg (2,000 unit) capsule (Vitamin D3) 2,000 unit PO DAILY 07/27/16 [History Last Taken 10/25/20 08:00] metformin 500 mg tablet,extended release 24 hr 1,000 mg PO DAILY 07/27/16 [History Last Taken 10/27/20 08:00] methylphenidate HCl 20 mg tablet (Ritalin) 30 mg PO DAILY 07/27/16 [History Last Taken 10/27/20 08:00] Ibuprofen [Motrin] 800 mg PO TID PRN PRN Pain #30 tabs 08/03/16 [Rx Last Taken 10/25/20 08:00] amlodipine 5 mg tablet 5 mg PO DAILY bp 10/21/20 [History Last Taken 10/28/20 04:30] magnesium 200 mg tablet 400 mg PO DAILY supplement 10/21/20 [History Last Taken 10/25/20 08:00] vitamin B complex 1 cap PO DAILY 10/21/20 [History Last Taken 10/25/20 08:00] cephalexin 500 mg capsule 500 mg PO BID #28 caps 10/29/20 [Rx Last Taken Unknown] tramadol 50 mg tablet 50 mg PO Q6H PRN pain #12 tabs 10/29/20 [Rx Last Taken Unknown] ciprofloxacin HCl 500 mg tablet (Cipro) 500 mg PO BID #14 tabs 11/14/20 [Rx Last Taken Unknown] Allergy/AdvReac Type Severity Reaction Status Date / Time bupropion [From Wellbutrin] Allergy Other Verified 02/06/22 12:36 erythromycin base Allergy Rash Verified 02/06/22 12:36 fluoxetine [From Prozac] Allergy Upset Verified 02/06/22 12:36 Stomach Penicillins [PCN] Allergy Rash Verified 02/06/22 12:36 Sulfa (Sulfonamide Allergy Rash Verified 02/06/22 12:36 Antibiotics) tolterodine [From Detrol] Allergy Shortness Verified 02/06/22 12:36 of breath acetaminophen [From Percocet] AdvReac Nausea Verified 02/06/22 12:36 citalopram AdvReac Other Verified 02/06/22 12:36 clonidine AdvReac Other Verified 02/06/22 12:36 codeine AdvReac Other Verified 02/06/22 12:36 lisinopril AdvReac Other Verified 02/06/22 12:36 mirtazapine AdvReac Other Verified 02/06/22 12:36 oxycodone [From Percocet] AdvReac Nausea Verified 02/06/22 12:36 paroxetine AdvReac Upset Verified 02/06/22 12:36 Stomach psyllium AdvReac Upset Verified 02/06/22 12:36 Stomach sertraline AdvReac Other Verified 02/06/22 12:36 venlafaxine [From Effexor] AdvReac Upset Verified 02/06/22 12:36 Stomach Surgical History History of appendectomy History of salpingectomy History of selective injection of anesthetic agent around lumbar nerve root History of tubal ligation Social History Smoking Status: Former smoker ROS ROS ED Constitutional Constitutional ED: Denies chills or fever(s) Eyes Eyes: Denies change in vision or diplopia ENT ENT ED: Denies rhinorrhea or sore throat Cardiovascular Cardiovascular: Reports chest pain, lightheadedness and racing heartbeat Respiratory/Chest Respiratory/Chest: Denies cough or dyspnea Gastrointestinal Gastrointestinal: Denies abdominal pain, diarrhea, nausea or vomiting Genitourinary Genitourinary ED: Denies dysuria or hematuria Musculoskeletal Musculoskeletal: Denies back pain or neck pain Integumentary Denies abscess or rash Neurologic Neurologic: Denies headache(s), paresthesias or weakness Psychiatric Psychiatric: Denies anxiety or suicidal thoughts EXAM Physical Exam Const Vital Signs: 02/06/22 12:34 02/06/22 13:59 02/06/22 14:01 Temperature 97.9 F Temperature Source Temporal Pulse Rate 89 90 Respiratory Rate 14 18 Blood Pressure 161/93 H 139/95 H Blood Pressure Mean 115 109 Pulse Ox 100 100 Oxygen Delivery Method Room Air Room Air Room Air 02/06/22 16:31 02/06/22 15:30 Temperature Temperature Source Pulse Rate 83 78 Respiratory Rate 18 18 Blood Pressure 135/89 H 122/84 H Blood Pressure Mean 104 96 Pulse Ox 99 99 Oxygen Delivery Method Room Air Room Air Positive well nourished and well developed General Appearance ED: well developed and NAD HEENT Reports moist mucous membranes normocephalic and atraumatic Eyes PERRL and EOMs intact bilaterally Neck full ROM and supple Resp normal respiratory effort and clear to auscultation bilaterally Cardio regular rate, regular rhythm and no murmurs GI non-tender and non-distended Auscultation: normoactive bowel sounds Palpation: soft Back/Spine no CVA tenderness General Back: other FROM Extremity normal to inspection and no calf tenderness General Extremety ED: Negative for edema, pulses abnormal or tenderness General Extremity: Negative for edema or pulses abnormal Neuro oriented x3, CN's II-XII intact bilaterally and no sensory deficits noted Sensorium / Orientation: awake and alert Motor Exam: strength 5/5 throughout Skin no rashes or lesions noted and no wounds Heart Score History: Moderately Suspicious ECG: Normal Age: </= 45 years Risk Factors: No Risk Factors Troponin: </= Normal Limit Score: 1 MDM MDM MDM Narrative Medical decision making narrative: Patient's PERC score is 0. Therefore she does not need further testing in order to rule out pulmonary embolus for the source of this pain. Her EKG is normal, her x-ray 1 view on my interpretation is normal, and her labs are normal. Discomfort improving with observation but still there, her heart rate is around 60s sinus rhythm no ectopy no events on telemetry while she was being here being observed. Discussed with cardiology as well as her history, he advises having respiratory attempt to place a 48-hour Holter here prior to discharge and have her follow-up in the office. Patient is comfortable with that plan. Her repeat troponin is negative. Lab Data Attestation: I reviewed the patient's lab results. Labs: Laboratory Results - last 24 hr 02/06/22 02/06/22 02/06/22 13:14 13:14 15:50 WBC 9.4 RBC 5.21 Hgb 14.6 Hct 43.9 MCV 84.3 MCH 28.0 MCHC 33.3 RDW Std Deviation 37.3 RDW Coeff of [place] 12.3 Plt Count 439 MPV 9.8 Immature Gran % (Auto) 0.400 Neut % (Auto) 67.5 Lymph % (Auto) 24.8 [place] % (Auto) 5.4 Eos % (Auto) 1.3 Baso % (Auto) 0.6 Absolute Neuts (auto) 6.3 Absolute Lymphs (auto) 2.33 Nucleated RBC % 0 Sodium 139 Potassium 3.6 Chloride 103 Carbon Dioxide 27.0 Anion Gap 9 BUN 10 Creatinine 0.84 Estim Creat Clear Calc 78.51 Est GFR (MDRD) Af Amer 96 Est GFR (MDRD) Non-Af 79 BUN/Creatinine Ratio 11.9 Glucose 93 Calcium 9.4 Troponin I High Sens 4 5 Radiography Chest X-Ray - ED: 1 View, Read by ED Physician, Normal and No Infiltrates Diagnostic Testing: Clinical Impression(s) from Imaging Studies Chest X-Ray 02/06/22 13:14 IMPRESSION: Normal x-ray examination of the chest. Electronically Signed: Ba Diego MD at 13:26 EST , Rhythm Strip Rhythm Strip: Sinus Rhythm Rate: 80 Ectopy: None EKG Initial EKG: Attestation: I personally reviewed and interpreted this EKG as follows: Interpretation: Sinus Rhythm and No Acute Injury Pattern Comments: Normal EKG. Normal axis. No ectopy. Discharge Plan Triage Chief Complaint: Chest Pain ED Provider: Everardo Jackson Dx/Rx/DC Orders Clinical Impression: Heart palpitations, Chest pain, History of Kawasaki's disease Instructions: ED Chest Pain, Uncertain Cause, ED Palpitations Prescriptions: No Action methylphenidate HCl [Ritalin] 20 MG tablet 30 mg PO DAILY metformin 500 MG tablet 1,000 mg PO DAILY cholecalciferol (vitamin D3) [Vitamin D3] 2,000 UNIT capsule 2,000 unit PO DAILY Ibuprofen [Motrin] 800 MG tablet 800 mg PO TID PRN PRN (Reason: Pain) Qty: 30 0RF amlodipine 5 mg tablet 5 mg PO DAILY vitamin B complex Capsule 1 cap PO DAILY magnesium 200 mg Tablet 400 mg PO DAILY tramadol 50 mg tablet 50 mg PO Q6H PRN (Reason: pain) Qty: 12 0RF cephalexin 500 mg capsule 500 mg PO BID Qty: 28 0RF ciprofloxacin HCl [Cipro] 500 mg tablet 500 mg PO BID Qty: 14 0RF Primary Care Provider: Vanesa Jung Referrals: Bhaskar Koenig MD [Med Staff - Active Staff] - (after you turn in the holter monitor; call for appt) Vanesa Jung MD [Primary Care Provider] - Disposition Disposition: Home, Self Care
[2022-02-06] MEDS: Aspirin 81 MG TAB.CHEW 162 MG PO (13:55)
[2022-02-06 13:58] LABS: Anion Gap 9 (5-15); BUN 10 mg/dL (7-18); BUN/Creat Ratio 11.9 RATIO (10-20); Calcium,Total 9.4 mg/dL (8.5-10.1); Chloride 103 mmol/L (98-107); Creatinine, Serum 0.84 mg/dL (0.55-1.02); EST Glomerular Filtration Rate 79 mL/min (>60); Est Glom Filt Rate - Afr Amer 96 mL/min (>60); Estimated Creatinine Clearance 78.51 ml/min; Glucose 93 mg/dL (74-106); Potassium 3.6 mmol/L (3.5-5.1); Sodium Level 139 mmol/L (136-145); Troponin-I HS 4 pg/mL (3.0-54.0)
[2022-02-06 13:59] VITALS: BP 139/95; PULSE 90; RESP 18; O2SAT 100
[2022-02-06 15:30] VITALS: BP 122/84; PULSE 78; RESP 18; O2SAT 99
[2022-02-06 16:16] LABS: Troponin-I HS 5 pg/mL (3.0-54.0)
[2022-02-06 16:31] VITALS: BP 135/89; PULSE 83; RESP 18; O2SAT 99
[2022-02-06 17:11] VITALS: BP 141/95; PULSE 84; RESP 18
== END 2022-02-06 17:15 | disposition home or self-care (01) ==
PROVIDERS: Emergency Provider Emergency Medicine; PCP Internal Medicine; Visit Provider Emergency Medicine
DX: R00.2 Palpitations (principal); R07.9 Chest pain, unspecified; I10 Essential (primary) hypertension; Z87.891 Personal history of nicotine dependence
CPT/HCPCS: 71045; 80048; 84484; 85025; 93005; 99285; A4216

== ENCOUNTER → 2022-02-06 | Outpatient (CLI) | payer OTHER, MEDICAID, SELFPAY | END | disposition home or self-care (01) | LOC: PSN 17:03 | PROVIDERS: PCP Internal Medicine; Visit Provider Emergency Medicine | DX: R07.9 Chest pain, unspecified (principal) | CPT/HCPCS: 93225; 93226 ==

== ENCOUNTER → 2022-04-24 | Outpatient (CLI) | payer OTHER, MEDICAID, SELFPAY ==
--- NOTE | 2022-04-24 09:53 | STEWCON_ITS ---
Reason For Study: Chest Pain Stress Results Stress Echocardiogram-Paul Protocol with Protocol: Definity Maximum Predicted HR: 178 bpm Target HR: 151 bpm % Maximum Predicted HR: 88 % DurationHeart Rate Stage (mm:ss) (bpm) BP Comment Baseline 70 120/88Patient denies chest pain at this time Stage 1 3:00 97 122/86Patient denies chest pain Stage 2 3:00 109 124/86Mild shortness of breath. Patient denies chest pain Stage 3 3:00 133 138/88Moderate shortness of breath. Patient denies chest pain Stage 4 1:19 157 / increasing shortness of breath, no chest pain recovery 91 122/70Patient denies chest pain Stress Duration: 10:19 mm:ss Maximum Stress HR: 157 bpm Baseline Echocardiogram Findings Stress Echo Wall motion Data Resting WM Intermediate WM Stress WM ECHO/Stress Test Echo W/Contrast Interpretation Summary Stress echocardiogram. Resting EKG demonstrates normal sinus rhythm with a rate of 70 bpm. The resting blood pressure is 120/88 mmHg. The patient exercised according to the regular Paul protocol for a total duration of 10 minutes and 18 seconds. Patient completed 18 seconds and 1 minute into stage IV of the Paul protocol the maximum heart rate attained was 157 bpm which was 88% of max impac sulema heart rate the maximum workload was 13.4 metabolic equivalents. At rest there were no ST brown es noted suggest ischemia at peak exercise upsloping ST changes were noted would not be the crit eria for ischemia. No clinical angina was noted the test was terminated due to leg fatigue. The peak blood pressure was 138/88 mmHg which was good blood pressure response to exercise. Stress echocardiogram. The resting echocardiogram performed with Definity enhancement demonstrated a b aseline ejection fraction of 55%. During exercise there was thickening of all garcia and reductio n of the ventricular cavity size peaking of ejection fraction of 65%. No wall motion abnormalities w ere noted. Conclusion: Normal exercise stress echo with no evidence of ischemia at a high workload. Good functional aerobic capacity. Ordering Physician: Bhaskar Koenig Referring Physician: Bhaskar Koenig MD Performed By: Michelle Hood, ABIMBOLA, RVT
== END | disposition home or self-care (01) ==
LOC: CVS 09:52
PROVIDERS: PCP Internal Medicine; Visit Provider Internal Medicine Cardiovascular Disease
DX: R07.9 Chest pain, unspecified (principal); R53.83 Other fatigue; I10 Essential (primary) hypertension
CPT/HCPCS: 93017; 93350; Q9957; A4216; C8928

== ENCOUNTER 2022-10-30 12:49 | Emergency (ER) | payer OTHER, MEDICAID, SELFPAY ==
[2022-10-30 12:50] VITALS: BP 148/103; PULSE 82; RESP 18; TEMP 36.6; O2SAT 100; BMI 30.4
--- NOTE | 2022-10-30 13:15 | CT_ITS ---
STUDY: CT BRAIN WITHOUT CONTRAST REASON FOR EXAM: Female, 42 years old. Head injury. No loss of consciousness. RADIATION DOSAGE (If Supplied By Facility): CTDIvol = ( 47.06 ) mGy, DLP = ( 872.68 ) mGycm TECHNIQUE: Transaxial CT imaging of the brain was performed without administration of intravenous contrast material. Individualized dose optimization techniques were used for this CT. COMPARISON: No relevant priors. FINDINGS: Normal soft tissue structures. Normal calvarium. Normal size ventricles and extra-axial spaces for the patient''s age. Normal white matter tracts of the cerebral hemispheres. Normal basal ganglia and thalami. Normal brainstem. Normal cerebellum. There is no intracranial hemorrhage. There are no findings of an acute ischemic infarction. Normal visualized paranasal sinuses. CT/Brain/Head without Contrast IMPRESSION: Normal unenhanced CT scan of the brain. Electronically Signed: Ba Diego MD at 14:00 EDT ,
--- NOTE | 2022-10-30 13:16 | EX.ED.GENINJ ---
HPI History of Present Illness Chief Complaint: Fall Informant: patient Onset/Context/Timing Onset: Yesterday Narrative Narrative: 42-year-old male presenting to the emergency room with a chief complaint of head injury. Patient states that last evening she slipped and fell in a comforter that was in her hand landing on her left side. She states that she did not hit any objects on the way down to the ground but landed on the left side. She states her head struck the floor but did not sustain a loss of consciousness. She notes the time of injury she felt immediate pain in the left lateral hip left elbow and distal arm/hand. She notes that she has been able to use the left hand normally. The left hip is continued tender to palpation but she has been able to ambulate. No abdominal pain. She notes that she has pain in the left mid to low back. She notes a persistent generalized headache as well as nausea. She notes some intermittent double vision. She denies any hematuria hemoptysis. She notes that she feels generally sore and went to work today. She has been using anti-inflammatories. She notes no radicular pain. She has been able to ambulate. Due to the persistent headache and nausea it was recommended that she be evaluated for concussion. She denies taking any blood thinners. No reported seizures. [facility] Medical History ADHD Allergy to metal Anxiety Arthritis Bladder infection COVID-19 Depression Dietary restriction Essential hypertension Former smoker Gastric reflux Hematuria Hyperlipidemia IBS (irritable bowel syndrome) Injury of back Intraoperative bladder injury Kawasaki disease Migraine headache Multiple thyroid nodules OCD (obsessive compulsive disorder) Polycystic ovaries Raynaud's syndrome Restless legs Shortness of breath on exertion SVT (supraventricular tachycardia) Vitamin D deficiency Wears glasses Home Medications metformin 500 mg tablet,extended release 24 hr 1,000 mg PO DAILY 07/27/16 [History Last Taken 10/27/20 08:00] amlodipine 5 mg tablet 5 mg PO DAILY bp 10/21/20 [History Last Taken 10/28/20 04:30] vitamin B complex 1 cap PO DAILY 10/21/20 [History Last Taken 10/25/20 08:00] aluminum chloride 20 % topical solution 1 applic topical 2XW PRN 03/23/22 [History Last Taken Unknown] cholecalciferol (vitamin D3) 50 mcg (2,000 unit) tablet 50 mcg PO DAILY 03/23/22 [History Last Taken Unknown] cyanocobalamin (vitamin B-12) 1,000 mcg capsule 2,000 mcg PO DAILY 03/23/22 [History Last Taken Unknown] fluticasone propionate 50 mcg/actuation nasal spray,suspension (Flonase Allergy Relief) 2 spray intranasal DAILY 03/23/22 [History Last Taken Unknown] magnesium oxide 400 mg PO DAILY 03/23/22 [History Last Taken Unknown] methylphenidate HCl 18 mg tablet,extended release 24 hr 18 mg PO QAM 03/23/22 [History Last Taken Unknown] methylphenidate HCl 54 mg tablet,extended release 24 hr 54 mg PO QAM 03/23/22 [History Last Taken Unknown] cyclobenzaprine 10 mg tablet 10 mg PO TID PRN Muscle Spasm #15 TABLETS 10/30/22 [Rx Last Taken Unknown] ondansetron 4 mg disintegrating tablet 4 mg PO Q6H PRN PRN Nausea #15 tabs 10/30/22 [Rx Last Taken Unknown] Allergy/AdvReac Type Severity Reaction Status Date / Time cefuroxime [From Ceftin] Allergy Unknown Hives Verified 10/30/22 12:51 hydrochlorothiazide Allergy Unknown Hives Verified 10/30/22 12:51 bupropion [From Wellbutrin] Allergy Other Verified 10/30/22 12:51 erythromycin base Allergy Rash Verified 10/30/22 12:51 fluoxetine [From Prozac] Allergy Upset Verified 10/30/22 12:51 Stomach Penicillins [PCN] Allergy Rash Verified 10/30/22 12:51 Sulfa (Sulfonamide Allergy Rash Verified 10/30/22 12:51 Antibiotics) tolterodine [From Detrol] Allergy Shortness Verified 10/30/22 12:51 of breath hydrocodone [From Vicodin] AdvReac Unknown GI upset Verified 10/30/22 12:51 prednisone AdvReac Unknown Headaches Verified 10/30/22 12:51 acetaminophen [From Percocet] AdvReac Nausea Verified 10/30/22 12:51 citalopram AdvReac Other Verified 10/30/22 12:51 clonidine AdvReac Other Verified 10/30/22 12:51 codeine AdvReac Other Verified 10/30/22 12:51 lisinopril AdvReac Other Verified 10/30/22 12:51 mirtazapine AdvReac Other Verified 10/30/22 12:51 oxycodone [From Percocet] AdvReac Nausea Verified 10/30/22 12:51 paroxetine AdvReac Upset Verified 10/30/22 12:51 Stomach psyllium AdvReac Upset Verified 10/30/22 12:51 Stomach sertraline AdvReac Other Verified 10/30/22 12:51 venlafaxine [From Effexor] AdvReac Upset Verified 10/30/22 12:51 Stomach Family History Mother Myocardial infarction Surgical History History of appendectomy History of salpingectomy History of selective injection of anesthetic agent around lumbar nerve root History of tubal ligation Hx of total vaginal hysterectomy Social History Smoking Status: Former smoker how long ago did patient quit smokin alcohol intake: never ROS ROS ED Constitutional Constitutional ED: Denies chills or weight loss Eyes Eyes: Denies change in vision or diplopia ENT ENT ED: Denies ear pain, rhinorrhea or sore throat Cardiovascular Cardiovascular: Denies chest pain, orthopnea, palpitations or racing heartbeat Respiratory/Chest Respiratory/Chest: Denies cough, dyspnea or orthopnea Gastrointestinal Gastrointestinal: Reports nausea; Denies abdominal pain, diarrhea or vomiting Genitourinary Genitourinary ED: Denies dysuria, hematuria or urinary frequency Musculoskeletal Musculoskeletal: Reports back pain and other Details: Left hip left elbow forearm hand pain ; Denies arthralgias or myalgias Integumentary Denies abscess or rash Neurologic Neurologic: Reports headache(s); Denies weakness Psychiatric Psychiatric: Denies anxiety, depression, suicidal ideation or suicidal thoughts Endocrine Endocrinology: Denies polydipsia, polyphagia or polyuria Allergic/Immunologic Allergic/Immunologic ED: Denies mouth swelling, tongue swelling or urticaria EXAM Physical Exam Const Vital Signs: 10/30/22 12:50 10/30/22 13:05 Temperature 97.8 F Temperature Source Temporal Pulse Rate 82 Respiratory Rate 18 Respiratory Effort Normal Non-Labored Blood Pressure 148/103 H Blood Pressure Mean 118 Pulse Ox 100 Oxygen Delivery Method Room Air Room Air Positive well nourished and well developed General Appearance ED: well developed HEENT Reports normocephalic, head/scalp atraumatic and moist mucous membranes HEENT Narrative: No hemotympanums. No periauricular bruising. No palpable bony abnormalities. Eyes PERRL and EOMs intact bilaterally Neck full ROM, no lymphadenopathy, supple and no JVD Neck Narrative: Patient appears to have a full painless range of motion. Chest Wall inspection of chest normal and palpation of chest normal Chest Narrative: No crepitance Resp normal respiratory effort and clear to auscultation bilaterally Cardio regular rate, regular rhythm and no murmurs GI normal to inspection, nondistended, normoactive bowel sounds and non-tender Inspection: Negative for abdominal distention Auscultation: normoactive bowel sounds Palpation: soft; Negative for tender Back/Spine no CVA tenderness and normal ROM Back/Spine Narrative: Patient has tenderness to palpation over the left mid to lower paraspinal musculature. Extremity Extremity Narrative: Tender to palpation over the left greater trochanter. Negative logroll. Able to ambulate. Full range of motion of the left arm and hand no external bruising or swelling noted General Extremety ED: Negative for deformity or edema General Extremity: Negative for deformity or edema Neuro oriented x3 and CN's II-XII intact bilaterally Eden Coma Scale: document GCS findings Spontaneous Obeys Commands Oriented 15 Sensorium / Orientation: alert Motor Exam: strength 5/5 throughout Psych mental status grossly normal Mood & Affect: Negative for depressed or tearful Skin no rashes or lesions noted and no wounds MDM MDM MDM Narrative Medical decision making narrative: At this time I do not think x-rays of the left arm or left hip and low back are going to demonstrate fracture. CT of the brain was obtained and was negative for intracranial hemorrhage or fracture. Patient received Zofran for nausea. I personally reviewed and interpreted the CT of the brain and agree with it being negative for hemorrhage or fracture. I think at this time with persistent headache and nausea patient most likely has a mild concussion. Patient be treated with anti-inflammatories or acetaminophen for pain. I will write Zofran for nausea and Flexeril for muscle soreness. Patient is to rest with follow-up with primary care in 1 week. Differential diagnosis: Intracranial hemorrhage/hematoma skull fracture HPI extremity fracture rib/lung injury Diagnosis considered but do not suspect: My EKG interpretation: N/A Imaging independently reviewed and interpreted by myself: CT brain negative External documents reviewed: N/A Reevaluation: Stable Disposition discussed with patient/family/significant other: Patient Care discussed with consulting clinician: N/A This note was generated with [employer] dictation software. It may contain incorrect words, spelling, punctuation that were not intended while checking the note before signing. Radiography Diagnostic Testing: Clinical Impression(s) from Imaging Studies Brain CT 10/30/22 13:15 IMPRESSION: Normal unenhanced CT scan of the brain. Electronically Signed: Ba Diego MD at 14:00 EDT , Discharge Plan Triage Chief Complaint: Fall Other Complaint: Head Injury ED Provider: Teofilo Terry Dx/Rx/DC Orders Clinical Impression: Strain of fascia of lower back, Concussion, Contusion of arm, left, Contusion of hip, left Instructions: After a Concussion, ED Back Sprain/Strain, ED Hip Contusion Prescriptions: New cyclobenzaprine [cyclobenzaprine] 10 mg tablet 10 mg PO TID PRN (Reason: Muscle Spasm) Qty: 15 0RF ondansetron [ondansetron] 4 mg tablet,disintegrating 4 mg PO Q6H PRN PRN (Reason: Nausea) Qty: 15 0RF No Action methylphenidate HCl 18 mg tablet extended release 24hr 18 mg PO QAM methylphenidate HCl 54 mg tablet extended release 24hr 54 mg PO QAM cholecalciferol (vitamin D3) 50 mcg (2,000 unit) tablet 50 mcg PO DAILY magnesium oxide 400 mg magnesium tablet 400 mg PO DAILY cyanocobalamin (vitamin B-12) 1,000 mcg capsule 2,000 mcg PO DAILY fluticasone propionate [Flonase Allergy Relief] 50 mcg/actuation spray,suspension 2 spray intranasal DAILY Rx Instructions: administer into each nostril aluminum chloride 20 % solution 1 applic topical 2XW PRN metformin 500 MG tablet 1,000 mg PO DAILY amlodipine 5 mg tablet 5 mg PO DAILY vitamin B complex Capsule 1 cap PO DAILY Primary Care Provider: Vanesa Jung Referrals: Vanesa Jung MD [Primary Care Provider] - 1 Week Disposition Disposition: Home, Self Care
[2022-10-30] MEDS: Ondansetron ODT 4 MG Tablet PO (13:34)
--- NOTE | 2022-10-30 15:51 | ED.RN ---
[facility] pharmacy called regarding her rx upon discharge, verbal order given according to meds ordered on discharge for zofran cyclobenzaprine.
== END 2022-10-30 14:40 | disposition home or self-care (01) ==
PROVIDERS: Emergency Provider Emergency Medicine; PCP Internal Medicine; Visit Provider Emergency Medicine
DX: S39.012A Strain of muscle, fascia and tendon of lower back, initial encounter (principal); S06.0X0A Concussion without loss of consciousness, initial encounter; M79.10 Myalgia, unspecified site; S70.02XA Contusion of left hip, initial encounter; M25.552 Pain in left hip; I10 Essential (primary) hypertension; Z87.891 Personal history of nicotine dependence; E78.5 Hyperlipidemia, unspecified; W01.10XA Fall on same level from slipping, tripping and stumbling with subsequent striking against unspecified object, initial encounter; Z86.16 Personal history of COVID-19; K21.9 Gastro-esophageal reflux disease without esophagitis; F42.9 Obsessive-compulsive disorder, unspecified
CPT/HCPCS: 70450; 99282

== ENCOUNTER 2023-01-29 15:11 | Emergency (ER) | payer OTHER, SELFPAY ==
[2023-01-29 15:12] VITALS: BP 139/100; PULSE 107; RESP 16; TEMP 36.4; O2SAT 96; BMI 29.9
--- NOTE | 2023-01-29 18:18 | EDS_ITS ---
HPI History of Present Illness Chief Complaint: Cold Sx Informant: patient Onset/Context/Timing Onset: Days (5) Context: Gradual Onset Timing: Continuous Quality: Wheezing Location: Chest Worsened by: Activity Relieved by: Rest Narrative Narrative: Patient presents with cough and wheezing that has been getting worse over the last 5 days. Patient admits to a sore throat. Patient states she was prescribed doxycycline for this recently. Patient is currently taking that with minimal relief. Patient states her cough is worse with any activity and better with rest. Patient states she is coughing up some clear sputum. Patient states she also has noted hearing some wheezing the other day. Patient admits to some subjective chills but denies any fevers. Patient admits to some nausea but denies any vomiting. Patient also admits to some general myalgias. [facility] Medical History ADHD Allergy to metal Anxiety Arthritis Bladder infection COVID-19 Depression Dietary restriction Essential hypertension Former smoker Gastric reflux Hematuria Hyperlipidemia IBS (irritable bowel syndrome) Injury of back Intraoperative bladder injury Kawasaki disease Migraine headache Multiple thyroid nodules OCD (obsessive compulsive disorder) Polycystic ovaries Raynaud's syndrome Restless legs Shortness of breath on exertion SVT (supraventricular tachycardia) Vitamin D deficiency Wears glasses Home Medications metformin 500 mg tablet,extended release 24 hr 1,000 mg PO DAILY 07/27/16 [Hist ory Last Taken 10/27/20 08:00] amlodipine 5 mg tablet 5 mg PO DAILY bp 10/21/20 [History Last Taken 10/28/20 04:30] vitamin B complex 1 cap PO DAILY 10/21/20 [History Last Taken 10/25/20 08:00] aluminum chloride 20 % topical solution 1 applic topical 2XW PRN 03/23/22 [History Last Taken Unknown] cholecalciferol (vitamin D3) 50 mcg (2,000 unit) tablet 50 mcg PO DAILY 03/23/22 [History Last Taken Unknown] cyanocobalamin (vitamin B-12) 1,000 mcg capsule 2,000 mcg PO DAILY 03/23/22 [History Last Taken Unknown] fluticasone propionate 50 mcg/actuation nasal spray,suspension (Flonase Allergy Relief) 2 spray intranasal DAILY 03/23/22 [History Last Taken Unknown] magnesium oxide 400 mg PO DAILY 03/23/22 [History Last Taken Unknown] methylphenidate HCl 18 mg tablet,extended release 24 hr 18 mg PO QAM 03/23/22 [History Last Taken Unknown] methylphenidate HCl 54 mg tablet,extended release 24 hr 54 mg PO QAM 03/23/22 [History Last Taken Unknown] cyclobenzaprine 10 mg tablet 10 mg PO TID PRN Muscle Spasm #15 TABLETS 10/30/22 [Rx Last Taken Unknown] ondansetron 4 mg disintegrating tablet 4 mg PO Q6H PRN PRN Nausea #10 tabs 10/30/22 [Rx Last Taken Unknown] Allergy/AdvReac Type Severity Reaction Status Date / Time cefuroxime [From Ceftin] Allergy Unknown Hives Verified 01/29/23 15:12 hydrochlorothiazide Allergy Unknown Hives Verified 01/29/23 15:12 bupropion [From Wellbutrin] Allergy Other Verified 01/29/23 15:12 erythromycin base Allergy Rash Verified 01/29/23 15:12 fluoxetine [From Prozac] Allergy Upset Verified 01/29/23 15:12 Stomach Penicillins [PCN] Allergy Rash Verified 01/29/23 15:12 Sulfa (Sulfonamide Allergy Rash Verified 01/29/23 15:12 Antibiotics) tolterodine [From Detrol] Allergy Shortness Verified 01/29/23 15:12 of breath hydrocodone [From Vicodin] AdvReac Unknown GI upset Verified 01/29/23 15:12 prednisone AdvReac Unknown Headaches Verified 01/29/23 15:12 acetaminophen [From Percocet] AdvReac Nausea Verified 01/29/23 15:12 citalopram AdvReac Other Verified 01/29/23 15:12 clonidine AdvReac Other Verified 01/29/23 15:12 codeine AdvReac Other Verified 01/29/23 15:12 lisinopril AdvReac Other Verified 01/29/23 15:12 mirtazapine AdvReac Other Verified 01/29/23 15:12 oxycodone [From Percocet] AdvReac Nausea Verified 01/29/23 15:12 paroxetine AdvReac Upset Verified 01/29/23 15:12 Stomach psyllium AdvReac Upset Verified 01/29/23 15:12 Stomach sertraline AdvReac Other Verified 01/29/23 15:12 venlafaxine [From Effexor] AdvReac Upset Verified 01/29/23 15:12 Stomach Family History Mother Myocardial infarction Surgical History History of appendectomy History of salpingectomy History of selective injection of anesthetic agent around lumbar nerve root History of tubal ligation Hx of total vaginal hysterectomy Social History Smoking Status: Former smoker how long ago did patient quit smokin alcohol intake: never ROS ROS ED Constitutional Constitutional ED: Reports chills and subjective; Denies fever(s) Eyes Eyes: Denies blurry vision or change in vision ENT ENT ED: Reports sore throat; Denies rhinorrhea Cardiovascular Cardiovascular: Denies chest pain or palpitations Respiratory/Chest Respiratory/Chest: Reports cough; Denies dyspnea Gastrointestinal Gastrointestinal: Reports nausea; Denies vomiting Genitourinary Genitourinary ED: Reports urinary frequency; Denies dysuria or hematuria Musculoskeletal Musculoskeletal: Reports myalgias; Denies neck pain Integumentary Reports rash; Denies abscess Neurologic Neurologic: Denies headache(s) or weakness Allergic/Immunologic Allergic/Immunologic ED: Denies mouth swelling or urticaria EXAM Physical Exam Const Vital Signs: 01/29/23 15:12 Temperature 97.6 F L Temperature Source Temporal Pulse Rate 107 H Respiratory Rate 16 Blood Pressure 139/100 H Blood Pressure Mean 113 Pulse Ox 96 Oxygen Delivery Method Room Air Positive well nourished and well developed General Appearance ED: well developed and NAD Neck supple and no JVD Resp normal respiratory effort and clear to auscultation bilaterally Cardio regular rate and regular rhythm GI non-tender and non-distended Palpation: soft Extremity normal to inspection Neuro oriented x3, CN's II-XII intact bilaterally and no sensory deficits noted Sensorium / Orientation: alert Motor Exam: strength 5/5 throughout Psych mental status grossly normal MDM MDM MDM Narrative Medical decision making narrative: Differential diagnosis includes COVID-19 infection, and viral upper respiratory infection. COVID-19 rapid antigen will be obtained to assess for COVID-19 infection. Since the patient is currently on doxycycline, I do not feel chest x-ray is necessary since it would not change any treatment. Treatment and Re-Evaluation :: Patient was advised of her findings. Patient was instructed to continue the doxycycline as prescribed. Patient was instructed use [id number] Mucinex as needed. Patient was instructed to follow-up with her primary care physician in 5 to 7 days. Patient understood and was agreeable with the plan. All questions were answered. Discharge Plan Triage Chief Complaint: Cold Sx ED Provider: Homer Kim Dx/Rx/DC Orders Clinical Impression: Viral upper respiratory infection, Essential hypertension Instructions: ED URI, Viral, No Abx (Adult) Prescriptions: No Action methylphenidate HCl 18 mg tablet extended release 24hr 18 mg PO QAM methylphenidate HCl 54 mg tablet extended release 24hr 54 mg PO QAM cholecalciferol (vitamin D3) 50 mcg (2,000 unit) tablet 50 mcg PO DAILY magnesium oxide 400 mg magnesium tablet 400 mg PO DAILY cyanocobalamin (vitamin B-12) 1,000 mcg capsule 2,000 mcg PO DAILY fluticasone propionate [Flonase Allergy Relief] 50 mcg/actuation spray,suspension 2 spray intranasal DAILY Rx Instructions: administer into each nostril aluminum chloride 20 % solution 1 applic topical 2XW PRN metformin 500 MG tablet 1,000 mg PO DAILY amlodipine 5 mg tablet 5 mg PO DAILY vitamin B complex Capsule 1 cap PO DAILY cyclobenzaprine [cyclobenzaprine] 10 mg tablet 10 mg PO TID PRN (Reason: Muscle Spasm) Qty: 15 0RF ondansetron [ondansetron] 4 mg tablet,disintegrating 4 mg PO Q6H PRN PRN (Reason: Nausea) Qty: 10 0RF Stand Alone Forms: ED Work / School Excuse Primary Care Provider: Vanesa Jung Referrals: Vanesa Jung MD [Primary Care Provider] - 5-7 Days Disposition Disposition: Home, Self Care
[2023-01-29 18:27] VITALS: O2SAT 98
== END 2023-01-29 19:02 | disposition home or self-care (01) ==
PROVIDERS: Emergency Provider Emergency Medicine; PCP Internal Medicine; Visit Provider Emergency Medicine
DX: J06.9 Acute upper respiratory infection, unspecified (principal); E78.5 Hyperlipidemia, unspecified; Z87.891 Personal history of nicotine dependence; I10 Essential (primary) hypertension; Z79.899 Other long term (current) drug therapy; F90.9 Attention-deficit hyperactivity disorder, unspecified type; Z90.49 Acquired absence of other specified parts of digestive tract; Z90.710 Acquired absence of both cervix and uterus
CPT/HCPCS: 36415; 87811; 94760; 99282